=== PATIENT | male | born 1960 | race African-American/Black ===

== ENCOUNTER → 2019-04-21 | Day surgery (SDC) | payer OTHER ==
[~2019-04-21] MED LIST: ACET500T68 PO; HYDR12.575 PO; IV RINGERS,LACTATED 1000ML 1,000 ML IV SCH; LIDOCAINE 2% PF 5 ML VIAL. ONE; MIRT30TA PO; PROPOFOL 20 ML IV ONE; SOFO1TAB PO
[2019-04-21 08:14] VITALS: BP 127/70
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
== END ==
LOC: ENDOS 06:05 → EEVIPCON 07:30
PROVIDERS: ATTEND Internal Medicine Gastroenterology
DX: K29.50 Unspecified chronic gastritis without bleeding (principal); K75.9 Inflammatory liver disease, unspecified
CPT/HCPCS: 43235; J2001; J2704